=== PATIENT | female | born 1980 | race American Indian/Alaskan Native ===

== ENCOUNTER 2020-09-11 16:11 | Emergency (ER) | payer MEDICAID, OTHER ==
[2020-09-11 16:24] VITALS: BP 128/95; PULSE 74
--- NOTE | 2020-09-11 16:39 | EDM.PDOC ---
ED HPI GENERAL MEDICAL PROBLEM - General Chief Complaint: Upper Extremity Injury/Pain Stated Complaint: LEFT HAND SWELLED UP Time Seen by Provider: 09/11/20 16:25 Source of Information: Reports: Patient, RN, RN Notes Reviewed History Limitations: Reports: No Limitations - History of Present Illness INITIAL COMMENTS - FREE TEXT/NARRATIVE: Patient is a 40-year-old female who presents to ER with complaint of swelling and redness to the left hand that began 3 days ago. Patient states she has been having fever and chills at home. Denies any drug use or injections in the hand. Patient does have a bandage to the right shinto area which she refuses to take off and refuses to let us look at. States she tripped over tools in the garage this morning. Patient does have dried blood on her sweatshirt, states it is her boyfriend sweatshirt and she does not know where the blood came from. Denies any nausea, vomiting, diarrhea, chest pains or shortness of breath. States she has been unable to get her ring off of her left ring finger. Onset: Today Left Hand Pain Score (Numeric/FACES): 8 - Related Data Allergies Allergy/AdvReac Type Severity Reaction Status Date / Time acetaminophen Allergy Cannot Verified 02/20/15 17:04 Remember ibuprofen Allergy Cannot Verified 02/20/15 17:04 Remember naproxen sodium [From Aleve] Allergy Cannot Verified 02/20/15 17:04 Remember Home Meds: Home Meds . [No Known Home Meds] 02/20/15 [History] Past Medical History - Past Health History Medical/Surgical History: Denies Medical/Surgical History Social & Family History - Tobacco Use Tobacco Use Status *Q: Never Tobacco User - Recreational Drug Use Recreational Drug Use: No - Living Situation & Occupation Living situation: Reports: Occupation: Unemployed Review of Systems - Review of Systems Review Of Systems: Comprehensive ROS is negative, except as noted in HPI. ED EXAM, GENERAL - Physical Exam Exam: See Below Exam Limited By: No Limitations General Appearance: Alert, WD/WN, No Apparent Distress Eye Exam: Bilateral Eye: EOMI, Normal Inspection Ears: Normal External Exam, Hearing Grossly Normal Nose: Normal Inspection Throat/Mouth: Normal Inspection, Normal Voice, No Airway Compromise Head: Other (2 bandages to the right shinto, patient refuses to take bandages off and show the wound) Neck: Normal Inspection, Supple, Non-Tender, Full Range of Motion Respiratory/Chest: No Respiratory Distress, Lungs Clear, Normal Breath Sounds, No Accessory Muscle Use, Chest Non-Tender Cardiovascular: Normal Peripheral Pulses, Regular Rate, Rhythm, No Edema, No Gallop, No JVD, No Murmur, No Rub Peripheral Pulses: 2+: Radial (L), Radial (R) GI/Abdominal: Normal Bowel Sounds, Soft, Non-Tender (Female) Exam: Deferred Rectal (Female) Exam: Deferred Back Exam: Normal Inspection, Full Range of Motion, NT Extremities: Increased Warmth (left hand), Redness (left hand), Other (swelling to let hand) Neurological: Alert, Oriented, CN II-XII Intact, Normal Cognition, Normal Gait, Normal Reflexes, No Motor/Sensory Deficits Psychiatric: Normal Affect, Normal Mood Skin Exam: Warm, Dry, Intact, No Rash, Erythema (left hand), Increased Warmth (left hand) Lymphatic: No Adenopathy ED TRAUMA EXTREMITY PROCEDURES - Additional/Other Procedure(s) Other (Free Text) Procedure(s): Used 3-0 Ethylon suture with needle removed to wrap around the left ring finger and remove ring. No complications. Course - Vital Signs Last Recorded V/S: Last Vital Signs Temp 98.2 F 09/11/20 16:23 Pulse 74 09/11/20 16:23 Resp 16 09/11/20 16:23 BP 128/95 H 09/11/20 16:23 Pulse Ox 98 09/11/20 16:23 - Orders/Labs/Meds Labs: Laboratory Tests 09/11/20 09/11/20 09/11/20 Range/Units 16:36 16:36 16:59 WBC 9.3 (5.0-10.0) 10^3/uL RBC 4.76 (4.2-5.4) 10^6/uL Hgb 13.6 (12.0-16.0) g/dL Hct 42.3 (37.0-47.0) % MCV 88.9 (80-100) fL MCH 28.6 (27.0-34.0) pg MCHC 32.2 L (33.0-35.0) g/dL Plt Count 201 (150-450) 10^3/uL Neut % (Auto) 70.7 (42.2-75.2) % Lymph % (Auto) 20.6 (20.5-50.1) % [place] % (Auto) 5.2 (2-8) % Eos % (Auto) 3.3 H (1.0-3.0) % Baso % (Auto) 0.2 (0.0-1.0) % Sodium 143 (136-145) mmol/L Potassium 3.8 (3.5-5.1) mmol/L Chloride 106 (98-107) mmol/L Carbon Dioxide 26 (21-32) mmol/L Anion Gap 14.8 H (7-13) mEq/L BUN 9 (7-18) mg/dL Creatinine 0.62 (0.55-1.02) mg/dL Est Cr Clr Drug Dosing 92.84 mL/min Estimated GFR (MDRD) > 60 BUN/Creatinine Ratio 14.5 (No establ ref range) Glucose 154 H (74-99) mg/dL Calcium 8.5 (8.5-10.1) mg/dL Total Bilirubin 0.3 (0.2-1.0) mg/dL AST 12 L (15-37) U/L ALT 21 (14-59) U/L Alkaline Phosphatase 95 (46-116) U/L Total Protein 7.6 (6.4-8.2) g/dL Albumin 3.3 L (3.4-5.0) g/dL Globulin 4.3 Albumin/Globulin Ratio 0.77 Urine Color Yellow (YELLOW) Urine Appearance Slightly cloudy (CLEAR) Urine pH 6.0 (5.0-9.0) Ur Specific [place] >= 1.030 (1.005-1.030) Urine Protein Negative (NEGATIVE) Urine Glucose (UA) Negative (NEGATIVE) Urine Ketones Negative (NEGATIVE) Urine Occult Blood Trace-lysed H (NEGATIVE) Urine Nitrite Negative (NEGATIVE) Urine Bilirubin Negative (NEGATIVE) Urine Urobilinogen 0.2 (0.2-1.0) mg/dL Ur Leukocyte Esterase Negative (NEGATIVE) Urine RBC 10-20 H /HPF Urine WBC 0-5 (0-5/HPF) /HPF Ur Epithelial Cells Few (NOT SEEN) /HPF Amorphous Sediment Few (NOT SEEN) /HPF Urine Bacteria Rare (0-FEW/HPF) /HPF Urine Mucus Moderate H (NOT SEEN) /LPF Urine HCG, Qual Urine Opiates Screen (NEGATIVE) Ur Oxycodone Screen (NEGATIVE) Urine Methadone Screen (NEGATIVE) Ur Barbiturates Screen (NEGATIVE) U Tricyclic Antidepress (NEGATIVE) Ur Phencyclidine Scrn (NEGATIVE) Ur Amphetamine Screen (NEGATIVE) U Methamphetamines Scrn (NEGATIVE) Urine MDMA Screen (NEGATIVE) U Benzodiazepines Scrn (NEGATIVE) Urine Cocaine Screen (NEGATIVE) U Marijuana (THC) Screen (NEGATIVE) Ethyl Alcohol < 3 (0) mg/dL 09/11/20 09/11/20 Range/Units 16:59 16:59 WBC (5.0-10.0) 10^3/uL RBC (4.2-5.4) 10^6/uL Hgb (12.0-16.0) g/dL Hct (37.0-47.0) % MCV (80-100) fL MCH (27.0-34.0) pg MCHC (33.0-35.0) g/dL Plt Count (150-450) 10^3/uL Neut % (Auto) (42.2-75.2) % Lymph % (Auto) (20.5-50.1) % [place] % (Auto) (2-8) % Eos % (Auto) (1.0-3.0) % Baso % (Auto) (0.0-1.0) % Sodium (136-145) mmol/L Potassium (3.5-5.1) mmol/L Chloride (98-107) mmol/L Carbon Dioxide (21-32) mmol/L Anion Gap (7-13) mEq/L BUN (7-18) mg/dL Creatinine (0.55-1.02) mg/dL Est Cr Clr Drug Dosing mL/min Estimated GFR (MDRD) BUN/Creatinine Ratio (No establ ref range) Glucose (74-99) mg/dL Calcium (8.5-10.1) mg/dL Total Bilirubin (0.2-1.0) mg/dL AST (15-37) U/L ALT (14-59) U/L Alkaline Phosphatase (46-116) U/L Total Protein (6.4-8.2) g/dL Albumin (3.4-5.0) g/dL Globulin Albumin/Globulin Ratio Urine Color (YELLOW) Urine Appearance (CLEAR) Urine pH (5.0-9.0) Ur Specific [place] (1.005-1.030) Urine Protein (NEGATIVE) Urine Glucose (UA) (NEGATIVE) Urine Ketones (NEGATIVE) Urine Occult Blood (NEGATIVE) Urine Nitrite (NEGATIVE) Urine Bilirubin (NEGATIVE) Urine Urobilinogen (0.2-1.0) mg/dL Ur Leukocyte Esterase (NEGATIVE) Urine RBC /HPF Urine WBC (0-5/HPF) /HPF Ur Epithelial Cells (NOT SEEN) /HPF Amorphous Sediment (NOT SEEN) /HPF Urine Bacteria (0-FEW/HPF) /HPF Urine Mucus (NOT SEEN) /LPF Urine HCG, Qual Negative Urine Opiates Screen Negative (NEGATIVE) Ur Oxycodone Screen Negative (NEGATIVE) Urine Methadone Screen Negative (NEGATIVE) Ur Barbiturates Screen Negative (NEGATIVE) U Tricyclic Antidepress Negative (NEGATIVE) Ur Phencyclidine Scrn Negative (NEGATIVE) Ur Amphetamine Screen Negative (NEGATIVE) U Methamphetamines Scrn Positive H (NEGATIVE) Urine MDMA Screen Negative (NEGATIVE) U Benzodiazepines Scrn Negative (NEGATIVE) Urine Cocaine Screen Negative (NEGATIVE) U Marijuana (THC) Screen Positive H (NEGATIVE) Ethyl Alcohol (0) mg/dL Meds: Medications Discontinued Medications Generic Name Dose Route Start Last Admin Trade Name Freq PRN Reason Stop Dose Admin Ceftriaxone Sodium 1 gm/ 0 gm 09/11/20 17:05 09/11/20 17:21 Lidocaine HCl 2.1 ml IM 09/11/20 17:06 1 inj ONETIME ONE Administration Iopamidol 100 ml 09/11/20 17:22 09/11/20 18:15 Iopamidol 612 Mg/Ml 100 Ml Bottle IVPUSH 09/11/20 17:23 100 ml ONETIME ONE Administration - Radiology Interpretation Free Text/Narrative:: CT left hand with contrast: PROCEDURE INFORMATION: Exam: CT Left Upper Extremity With Contrast, Hand Exam date and time: 09/11/2020 5:37 PM Age: 40 years old Clinical indication: Other: Cellulitis vs abscess of left hand TECHNIQUE: Imaging protocol: CT of the Left upper extremity with intravenous contrast was performed. Exam focused on the hand. Radiation optimization: All CT scans at this facility use at least one of these dose optimization techniques: automated exposure control; mA and/or kV adjustment per patient size (includes targeted exams where dose is matched to clinical indication); or iterative reconstruction. Contrast material: [id number]; Contrast volume: 100 ml; Contrast route: INTRAVENOUS (IV); COMPARISON: No relevant prior studies available. FINDINGS: Bones/joints: There is anatomic alignment. The joint spaces are preserved. There is no osseous erosion or aggressive osseous process. No abnormal bone density. No acute fra cture or dislocation. Soft tissues: Dorsal subcutaneous edema predominating at the distal half of the 4th metatarsal and 4th and 5th interspace. No enhancing edema adjacent to extensor tendons. No significant drainable fluid collection or abscess. IMPRESSION: 1. No enhancing abscess. 2. Dorsal surface edema predominating at the distal aspect of the metacarpals predominating along the ulnar aspect of the hand. Differential diagnosis includes cellulitis. If concern for tenosynovitis consider MRI of the hand for further characterization. Thank you for allowing us to participate in the care of your patient. Dictated and Authenticated by: Sita Plunkett MD 09/11/2020 6:34 PM Central Time ([place] & [place]) See rad report Departure - Departure Time of Disposition: 18:28 Disposition: Home, Self-Care 01 Condition: Fair Clinical Impression: Cellulitis of hand, Methamphetamine abuse - Discharge Information *PRESCRIPTION DRUG MONITORING PROGRAM REVIEWED*: No *COPY OF PRESCRIPTION DRUG MONITORING REPORT IN PATIENT JOSIAS: No Instructions: Cellulitis, Adult, [id number] Forms: ED Department Discharge Additional Instructions: RX: Doxycycline 100mg orally twice daily x10 Follow up with your primary care facility Return to ER with any worsening of symptoms Sepsis Event Note (ED) - Evaluation Sepsis Screening Result: No Definite Risk - Focused Exam Vital Signs: Vital Signs Temp Pulse Resp BP Pulse Ox 09/11/20 16:23 98.2 F 74 16 128/95 H 98
[2020-09-11 16:59] LABS: ANION GAP 14.8 mEq/L (7-13); CHLORIDE,CL 106 mmol/L (98-107); SODIUM,NA 143 mmol/L (136-145)
[2020-09-11] MEDS ORDERED: cefTRIAXone 1 GM, Lidocaine 1% 2.1 ML IM ONE ×2 (17:05)
[2020-09-11] MEDS ORDERED: Iopamidol 612 MG/ML 100 ML Bottle IVPUSH ONE (17:22)
--- NOTE | 2020-09-11 18:35 | CT ---
PROCEDURE INFORMATION: Exam: CT Left Upper Extremity With Contrast, Hand Exam date and time: 09/11/2020 5:37 PM Age: 40 years old Clinical indication: Other: Cellulitis vs abscess of left hand TECHNIQUE: Imaging protocol: CT of the Left upper extremity with intravenous contrast was performed. Exam focused on the hand. Radiation optimization: All CT scans at this facility use at least one of these dose optimization techniques: automated exposure control; mA and/or kV adjustment per patient size (includes targeted exams where dose is matched to clinical indication); or iterative reconstruction. Contrast material: [id number]; Contrast volume: 100 ml; Contrast route: INTRAVENOUS (IV); COMPARISON: No relevant prior studies available. FINDINGS: Bones/joints: There is anatomic alignment. The joint spaces are preserved. There is no osseous erosion or aggressive osseous process. No abnormal bone density. No acute fracture or dislocation. Soft tissues: Dorsal subcutaneous edema predominating at the distal half of the 4th metatarsal and 4th and 5th interspace. No enhancing edema adjacent to extensor tendons. No significant drainable fluid collection or abscess. IMPRESSION: 1. No enhancing abscess. 2. Dorsal surface edema predominating at the distal aspect of the metacarpals predominating along the ulnar aspect of the hand. Differential diagnosis includes cellulitis. If concern for tenosynovitis consider MRI of the hand for further characterization.
== END 2020-09-11 18:33 | disposition home or self-care (01) ==
LOC: DL.ED 16:11
DX: L03.114 Cellulitis of left upper limb (principal); F15.10 Other stimulant abuse, uncomplicated; Z88.6 Allergy status to analgesic agent; Z88.8 Allergy status to other drugs, medicaments and biological substances
CPT/HCPCS: 12001; 36415; 73201; 80053; 80305; 80307; 81001; 81025; 85025; 96372; 99284; J0696; Q9967